=== PATIENT | female | born 1965 | race Caucasian/White ===

== ENCOUNTER 2019-03-22 00:20 | Emergency (ER) | payer OTHER ==
[~2019-03-22 00:20] MED LIST: DIAZ10TA PO; OXYC10TA6 PO; OXYC20TA2 PO
--- NOTE | 2019-03-22 00:34 | NUR ---
PT GOT UP IN THE MIDDLE OF TRIAGE AND STATING NICOLÁS BISHNU WAS HAVING A PANIC ATTACK AND THAT SHE NEEDED TO GO OUTSIDE. WERE UNABLE TO OBTAIN VS PRIOR TO PT LEAVING WILL CHECK LOBBY AGAIN FOR PT.
--- NOTE | 2019-03-22 00:43 | NUR ---
CALLED TO ATTEMPT TO COMPLETE TRIAGE, PT NOT IN LOBBY AT THIS TIME.
--- NOTE | 2019-03-22 00:56 | NUR ---
NO ANSWER, LOBBY CHECKED
--- NOTE | 2019-03-22 01:36 | NUR ---
PT AGAIN CALLED AND LOBBY CHECKED NO LONGER HERE AT THIS TIME
== END 2019-03-22 01:39 | disposition left against medical advice (07) ==
LOC: ED 01:33
DX: R21 Rash and other nonspecific skin eruption (principal); Z53.21 Procedure and treatment not carried out due to patient leaving prior to being seen by health care provider

== ENCOUNTER 2019-05-13 01:10 | Emergency (ER) | payer MEDICAID, OTHER ==
[~2019-05-13] VITALS: Ht 162.6 cm; Wt 58.0 kg
--- NOTE | 2019-05-13 01:39 | NUR ---
PT REPORTS METH AND HEROIN USE TONIGHT. PT FOUND IN [employer] BATHROOM UNRESPONSIVE AND APNEIC. PT WAS AROUSED TO VERBAL STIMULI. NO MEDS GIVEN BY EMS. PT RA O2 75%. UPON ARRIVAL TO ED PT WAS A&OX4, GCS 15. PT PLACED ON ALL MONITORS INCLUDING ETCO2. ERMD TO SEE.
[2019-05-13 02:08] LABS: BASOPHILS # (AUTO) 0.02 x10^3/uL (0-0.1); BASOPHILS % (AUTO) 0 % (0-1); EOSINOPHILS # (AUTO) 0.12 x10^3/uL (0-0.4); EOSINOPHILS % (AUTO) 2 % (1-7); LYMPHOCYTES # (AUTO) 1.06 x10^3/uL (1-3.4); LYMPHOCYTES % (AUTO) 16 % (22-44); MD NO; MEAN CORPUSCULAR HGB CONC 32.3 g/dL (32.4-35.8); MEAN CORPUSCULAR VOLUME 92.8 fL (80-100); MEAN PLATELET VOLUME 7.4 fL (7.4-10.4); MONOCYTES # (AUTO) 0.36 x10^3/uL (0.2-0.8); MONOCYTES % (AUTO) 6 % (2-9); NEUTROPHILS # (AUTO) 4.89 x10^3/uL (1.8-6.8); NEUTROPHILS % (AUTO) 76 % (42-75); PLATELET COUNT 274 x10^3/uL (130-400); RED CELL DISTRIBUTION WIDTH 15.9 % (9.6-15.2)
[2019-05-13 02:12] LABS: ALBUMIN 3.4 g/dL (3.4-5.0); ANION GAP 2 mmol/L (5-15); CALCIUM 8.8 mg/dL (8.5-10.1); CHLORIDE 111 mmol/L (98-107); CREATININE 0.94 mg/dL (0.55-1.02)
[2019-05-13 02:16] LABS: TROPONIN I < 0.015 ng/mL (0.000-0.045)
--- NOTE | 2019-05-13 02:23 | NUR ---
PT TAKEN OFF O2. 92% RA
[2019-05-13 02:57] VITALS: BP 109/69
== END 2019-05-13 03:00 | disposition home or self-care (01) ==
LOC: ED 02:54
DX: F19.14 Other psychoactive substance abuse with psychoactive substance-induced mood disorder (principal); F15.10 Other stimulant abuse, uncomplicated; Z90.710 Acquired absence of both cervix and uterus
CPT/HCPCS: 36415; 71045; 80048; 82040; 84484; 85025; 93005; 99284

== ENCOUNTER 2019-06-15 12:20 | Emergency (ER) | payer MEDICAID ==
[~2019-06-15] VITALS: Ht 162.6 cm; Wt 57.9 kg
[2019-06-15 12:26] VITALS: BP 108/76
== END 2019-06-15 13:38 | disposition home or self-care (01) ==
LOC: ED 13:06
DX: S43.421A Sprain of right rotator cuff capsule, initial encounter (principal); F17.200 Nicotine dependence, unspecified, uncomplicated; Z90.710 Acquired absence of both cervix and uterus; X50.0XXA Overexertion from strenuous movement or load, initial encounter; Y93.89 Activity, other specified; Y92.009 Unspecified place in unspecified non-institutional (private) residence as the place of occurrence of the external cause; Y99.8 Other external cause status
CPT/HCPCS: 73030; 96372; 99283; J1885

== ENCOUNTER 2020-02-03 05:23 | Emergency (ER) | payer MEDICAID ==
[~2020-02-03] VITALS: Ht 162.6 cm; Wt 56.4 kg
[2020-02-03 05:30] VITALS: BP 103/68
[2020-02-03] MEDS ORDERED: ACETAMINOPHEN 500 MG TABLET ONE (05:57)
[2020-02-03] MEDS ORDERED: ACETAMINOPHEN 500 MG TABLET PO ONE (06:00)
--- NOTE | 2020-02-03 06:56 | NUR ---
PT RESTING IN BED WITH NO COMPLAINTS, PT DENIED ANY WANTS AT THIS TIME.
--- NOTE | 2020-02-03 06:58 | NUR ---
REPORT GIVEN TO SHANIQUE TOBIAS
--- NOTE | 2020-02-03 07:07 | NUR ---
REPORT RECEIVED FROM KHOA TOBIAS.
--- NOTE | 2020-02-03 08:07 | NUR ---
Note mariano in EDM - 02/03/20 at 0814 by KELLY APLINT APPLIED BY EMT AT THIS TIME. PT TOLERATED WELL.
--- NOTE | 2020-02-03 08:26 | NUR ---
pt requesting strong pain med for night time. pa/edmd are not here now. awaiting edmd/pa at this time.
--- NOTE | 2020-02-03 08:33 | NUR ---
Patient given discharge instructions and they have confirmed that they understand the instructions.
== END 2020-02-03 08:34 | disposition home or self-care (01) ==
LOC: ED 07:08
DX: S92.514A Nondisplaced fracture of proximal phalanx of right lesser toe(s), initial encounter for closed fracture (principal); Z90.710 Acquired absence of both cervix and uterus; X58.XXXA Exposure to other specified factors, initial encounter; Y93.89 Activity, other specified; Y92.410 Unspecified street and highway as the place of occurrence of the external cause; Y99.8 Other external cause status
CPT/HCPCS: 99283

== ENCOUNTER 2020-07-21 16:25 | Emergency (ER) | payer MEDICAID ==
--- NOTE | 2020-07-21 16:51 | NUR ---
NIL X1
--- NOTE | 2020-07-21 16:58 | NUR ---
NILX2
--- NOTE | 2020-07-21 17:05 | NUR ---
NILX3
== END 2020-07-21 17:07 | disposition left against medical advice (07) ==
LOC: ED 16:40
DX: N64.4 Mastodynia (principal); Z53.21 Procedure and treatment not carried out due to patient leaving prior to being seen by health care provider

== ENCOUNTER 2020-07-28 14:30 | Emergency (ER) | payer MEDICAID ==
[~2020-07-28] VITALS: Ht 162.6 cm; Wt 53.3 kg
--- NOTE | 2020-07-28 15:01 | NUR ---
left breast larger than right. denies pain. awaiting labs and ultrasound. watching tv, no distress
[2020-07-28 15:21] LABS: BASOPHILS # (AUTO) 0.01 x10^3/uL (0-0.1); BASOPHILS % (AUTO) 0 % (0-1); EOSINOPHILS # (AUTO) 0.02 x10^3/uL (0-0.4); EOSINOPHILS % (AUTO) 0 % (1-7); LYMPHOCYTES % (AUTO) 19 % (22-44); MD NO; MEAN CORPUSCULAR HEMOGLOBIN 26.9 pg (27.0-34.8); MEAN CORPUSCULAR HGB CONC 32.2 g/dL (32.4-35.8); MEAN CORPUSCULAR VOLUME 83.7 fL (80-100); MEAN PLATELET VOLUME 6.6 fL (7.4-10.4); MONOCYTES # (AUTO) 0.49 x10^3/uL (0.2-0.8); MONOCYTES % (AUTO) 7 % (2-9); NEUTROPHILS # (AUTO) 5.63 x10^3/uL (1.8-6.8); NEUTROPHILS % (AUTO) 75 % (42-75); PLATELET COUNT 344 x10^3/uL (130-400); RED BLOOD COUNT 4.96 x10^6/uL (3.82-5.3); RED CELL DISTRIBUTION WIDTH 14.1 % (9.6-15.2)
--- NOTE | 2020-07-28 16:28 | NUR ---
ULTRASOUND AND LABS COMPLETED AND AWAITING MRI. TO BATHROOM ACROSS [place]AUGHAN WITHOUT ASSISTANCE
[2020-07-28] MEDS ORDERED: SODIUM CHLORIDE FLUSH 10ML SYR IVF ONE (16:30)
[2020-07-28 16:39] VITALS: BP 110/75
--- NOTE | 2020-07-28 16:39 | NUR ---
PT NOT WAITING MRI BUT CT. IV ESTABLISHED FOR SAME. PT IN NO DISTRESS
[2020-07-28 16:41] LABS: BASOPHILS # (AUTO) 0.02 x10^3/uL (0-0.1); BASOPHILS % (AUTO) 0 % (0-1); EOSINOPHILS # (AUTO) 0.02 x10^3/uL (0-0.4); EOSINOPHILS % (AUTO) 0 % (1-7); LYMPHOCYTES # (AUTO) 1.65 x10^3/uL (1-3.4); LYMPHOCYTES % (AUTO) 21 % (22-44); MD NO; MEAN CORPUSCULAR HEMOGLOBIN 26.5 pg (27.0-34.8); MEAN CORPUSCULAR HGB CONC 31.1 g/dL (32.4-35.8); MEAN CORPUSCULAR VOLUME 85.2 fL (80-100); MEAN PLATELET VOLUME 6.8 fL (7.4-10.4); MONOCYTES # (AUTO) 0.42 x10^3/uL (0.2-0.8); MONOCYTES % (AUTO) 5 % (2-9); NEUTROPHILS # (AUTO) 5.93 x10^3/uL (1.8-6.8); NEUTROPHILS % (AUTO) 74 % (42-75); PLATELET COUNT 370 x10^3/uL (130-400); RED BLOOD COUNT 5.18 x10^6/uL (3.82-5.3); RED CELL DISTRIBUTION WIDTH 14.2 % (9.6-15.2)
[2020-07-28 16:54] LABS: ALBUMIN 3.6 g/dL (3.4-5.0); ANION GAP 6 mmol/L (5-15); CALCIUM 8.7 mg/dL (8.5-10.1); CHLORIDE 107 mmol/L (98-107); CREATININE 0.99 mg/dL (0.55-1.02)
[2020-07-28] MEDS ORDERED: OMNIPAQUE 350 MG/ML, 75ML BOTTLE ONE (17:24)
--- NOTE | 2020-07-28 18:57 | NUR ---
AMBULATED TO DISCHARGE WINDOW STEADY GAIT
== END 2020-07-28 18:59 | disposition home or self-care (01) ==
LOC: ED 18:24
DX: T85.49XA Other mechanical complication of breast prosthesis and implant, initial encounter (principal); Z90.710 Acquired absence of both cervix and uterus
CPT/HCPCS: 36415; 71260; 76642; 80048; 82040; 85025; 99285; Q9967

== ENCOUNTER 2020-09-20 07:37 | Emergency (ER) | payer MEDICAID ==
[~2020-09-20] VITALS: Ht 162.6 cm; Wt 56.7 kg
[2020-09-20 07:43] VITALS: BP 116/81
[2020-09-20] MEDS ORDERED: NEOSPORIN OINT. PKT 1 PACKET ONE (08:34)
== END 2020-09-20 08:49 | disposition home or self-care (01) ==
LOC: ED 08:05
DX: L03.115 Cellulitis of right lower limb (principal)
CPT/HCPCS: 82962; 99283

== ENCOUNTER 2021-07-29 01:23 | Emergency (ER) | payer MEDICAID ==
[~2021-07-29] VITALS: Ht 162.6 cm; Wt 58.8 kg
[2021-07-29 01:26] VITALS: BP 137/88
[2021-07-29] MEDS ORDERED: IBUPROFEN 200 MG TABLET PO ONE (02:00)
[2021-07-29] MEDS ORDERED: ACETAMINOPHEN 500 MG TABLET PO ONE (02:00)
[2021-07-29 02:16] LABS: MICROSCOPIC INDICATED
[2021-07-29] MEDS ORDERED: CEFDINIR 300 MG CAPSULE PO ONE (02:30)
[2021-07-29] MEDS ORDERED: CEFDINIR 300 MG CAPSULE ONE (02:35)
[2021-07-29] MEDS ORDERED: ONDANSETRON ODT 4 MG ONE (02:35)
[2021-07-29] MEDS ORDERED: IBUPROFEN 600 MG TABLET ONE (02:36)
[2021-07-29] MEDS ORDERED: ACETAMINOPHEN 500 MG TABLET ONE (02:36)
--- NOTE | 2021-07-29 02:47 | NUR ---
Patient given discharge instructions and they have confirmed that they understand the instructions. Patient ambulatory with steady gait. NAD, all questions answered appropriately, denies additional needs at this time. No personal belongings left in room after discharge.
[2021-07-29] MEDS ORDERED: ONDANSETRON ODT 4 MG PO ONE (03:00)
== END 2021-07-29 03:07 | disposition home or self-care (01) ==
LOC: ED 01:40
DX: N10 Acute pyelonephritis (principal)
CPT/HCPCS: 81001; 99284; Q0162